=== PATIENT | female | born 1935 | race African-American/Black ===

== ENCOUNTER 2016-08-20 23:20 | Inpatient (IN) | payer OTHER ==
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
--- NOTE | ~2016-08-20 | DS ---
Unit #: [id number] #: [id number] Patient: GIANNI GARCIA [id number] [address] [address] [id number] I MR#: [id number] NAME: GIANNI GARCIA. ROOM: 229 Age: 81 Sex: F Admission Date: 08/22/2016 : 1935 Discharge Date: 08/25/2016 Attending Physician: Vishnu Sommer M.D. Primary Care Physician: Toña Lyn M.D. DISCHARGE SUMMARY DIAGNOSIS ON ADMISSION Dementia with agitation. DIAGNOSES ON DISCHARGE 1. Dementia with behavior disorder. 2. Type 2 diabetes mellitus. 3. Hypertension. 4. History of gout. 5. Gastroesophageal reflux disease. 6. Degenerative joint disease. 7. History of right breast cancer, status post mastectomy. 8. History of chronic low-back pain and back surgery. DIAGNOSTIC STUDIES LABORATORY: Patient's creatinine is 1, sodium 132, potassium is 4. WBC 9.3, hemoglobin 13.5, platelet count 216,000. Urinalysis was negative. Hemoglobin A1c was 8.3. TSH was 1.63. HOSPITAL COURSE An 81-year-old female was admitted to the hospital with agitation. Details are as per admission H and P. Patient was treated symptomatically and has responded well. Patient's family is unable to take care of her at home. Therefore, she will be transferred to a long-term care facility. Type 2 diabetes mellitus: Patient was started on glipizide. Her hemoglobin 2.5 mg. Her hemoglobin A1c is 8.3. Today patient is comfortable, is not in any acute distress. PHYSICAL EXAMINATION VITAL SIGNS: Reveal temperature 97.5, pulse is 64 per minute, respiratory rate is 18 per minute, blood pressure is 166/64. HEENT: Revealed no conjunctival congestion. Sclerae nonicteric. NECK: Supple. Trachea is central. RESPIRATORY: Revealed decreased breath sounds bilaterally. There are no wheezes or crackles. HEART: Regular rate and rhythm. S1, S2. ABDOMEN: Soft, nontender. Bowel sounds are present in all four quadrants. NEUROLOGIC: Patient is only oriented to self. Strength is 4+ bilaterally. SKIN: Warm and dry. RECOMMENDATIONS ON DISCHARGE Unit #: [id number] #: [id number] Patient: GIANNI GARCIA Condition is stable. Activity is as tolerated. MEDICATIONS 1. Tylenol 650 mg p.o. q.4 hours p.r.n. 2. Magnesium oxide 400 mg p.o. b.i.d. 3. Risperdal 0.25 mg p.o. b.i.d. 4. Toprol XL 25 mg p.o. b.i.d. 5. MiraLax 17 g p.o. daily. 6. Lasix 40 mg p.o. every morning. 7. Trental 400 mg p.o. t.i.d. 8. Insulin sliding scale as per facility. 9. Pepcid 20 mg p.o. b.i.d. 10. Enteric coated aspirin 81 mg p.o. daily. 11. Voltaren gel apply topically b.i.d. to her knees until one week. 12. Potassium 20 mEq p.o. b.i.d. 13. Glipizide 2.5 mg p.o. daily. DISPOSITION The patient will be transferred to long-term care facility. PLAN The plan has been discussed with patient's son who has shown complete understanding. Dictated by... Mary Joya TD: 08/25/2016 12:55 JOB #: [id number] DISCHARGE SUMMARY Page 1 of 1 X Dafne Ayala MD X DISCHARGE SUMMARY
--- NOTE | ~2016-08-20 | EKG ---
PATIENT: GIANNI GARCIA UNIT #: [id number] Ventricular Rate: 94 BPM Atrial Rate: 94 BPM P-R Interval: 188 ms QRS Duration: 76 ms Q-T Interval: 410 ms QTC Calculation(Bezet): 512 ms P [place]: 83 degrees Calculated R [place]: 14 degrees Calculated T [place]: 63 degrees Diagnosis Line: Sinus rhythm with Premature atrial complexes Diagnosis Line: Nonspecific T wave abnormality Diagnosis Line: Abnormal ECG Diagnosis Line: No previous ECGs available Diagnosis Line: Confirmed by VANITA WHITEHEAD MD ([id number]) on Diagnosis Line: 08/21/2016 9:05:50 AM INTERPRETING MD: VENTURA ROBERTSON
--- NOTE | ~2016-08-20 | CR72 ---
[facility] A Service of [facility] RADIOLOGY TEXT RESULTS PATIENT: GIANNI GARCIA LOCATION: C2A 229-01 : 34 UNIT #: [id number] AGE: [address]: Vishnu Sommer MD SEX: F ORDER DR: [id number] [facility] [address]. [place], [place] [address] [id number] I MR#: [id number] Acc #: [id number] NAME: GIANNI GACRIA. : 1935 SEX: F STUDY DATE/TIME: 08/21/2016 0:00 UNIT: A ROOM: 229 STUDY DESCRIPTION: CR Chest Single View Portable Attending Physician: Vishnu Sommer M.D. Ordering Physician: Chacho Pappas P.A.-C. Primary Care Physician: Toña Lyn M.D. MEDICAL IMAGING REPORT This report is preliminary unless electronic signature is present EXAM Portable chest, 08/21 COMPARISON 11/26/2009 HISTORY Altered mental status, diarrhea, confusion for 2 months which is getting worse. FINDINGS A portable view of the chest was obtained. The heart size and vascularity are normal and the lungs are clear. There are sternotomy wires present. IMPRESSION No active disease. Dictated by... Gm Doss M.D. THIS IS AN ELECTRONICALLY VERIFIED REPORT Gm Doss M.D. at 08/21/2016 1:32 PM AARON/melvin TD: 08/21/2016 08:16 JOB #: [id number] MEDICAL IMAGING REPORT Page 1 of 1 COPY
--- NOTE | ~2016-08-20 | DS ---
Unit #: [id number] #: [id number] Patient: GIANNI GARCIA [id number] [facility]. [address] [address] [id number] I MR#: [id number] NAME: GIANNI GARCIA. ROOM: 229 Age: 81 Sex: F Admission Date: 08/22/2016 : 1935 Discharge Date: 08/26/2016 Attending Physician: Vishnu Sommer M.D. Primary Care Physician: Toña Lyn M.D. DISCHARGE SUMMARY ADDENDUM ADDITIONAL DISCHARGE MEDICATIONS Glipizide 2.5 mg p.o. daily. Make note the patient's hemoglobin A1C was 7.2. I have started him on low dose glipizide 2.5 mg p.o. daily with breakfast. Dictated by... Mary Joya TD: 08/25/2016 16:18 JOB #: [id number] DISCHARGE SUMMARY Page 1 of 1 X Dafne Ayala MD X DISCHARGE SUMMARY
[~2016-08-20 23:20] MED LIST: SEE BELOW
[2016-08-21 00:43] LABS: BASOPHIL% 0.4 % (0-2.5); DIFF IND NO; EOSINOPHIL# 0.1 X10e3 (0-0.7); EOSINOPHIL% 1.3 % (0.0-7.0); HEMATOCRIT 41.2 % (35.0-45.0); HEMOGLOBIN 13.5 gm/dL (12.0-16.0); LYMPHOCYTE# 2.9 X10e3 (1.0-3.5); LYMPHOCYTE% 30.9 % (17.0-45.0); MEAN CELL VOLUME 89.3 FL (83-96); MEAN CORPUSCULAR HEMOGLOBIN 29.1 PG (28-34); MEAN CORPUSCULAR HGB CONC 32.6 g/dL (30-36); MEAN PLATELET VOLUME 8.2 FL (6.5-11.5); MONOCYTE# 0.9 X10e3 (0-1.0); MONOCYTE% 9.8 % (3.0-12.0); NEUTROPHIL# 5.3 X10e3 (1.5-7.1); NEUTROPHIL% 57.6 % (40-75); PLATELET COUNT 216 X10e3 (140-420); RED BLOOD COUNT 4.62 X10e (3.90-5.30); RED CELL DISTRIBUTION WIDTH 14.3 % (11.0-15.5); WHITE BLOOD COUNT 9.3 X10e3 (4.0-10.5)
[2016-08-21 01:52] LABS: BILIRUBIN, DIRECT 0.1 mg/dL (0.0-0.2); BILIRUBIN,INDIRECT 0.8 mg/dL (0.0-0.9); BILIRUBIN,TOTAL 0.9 mg/dL (0.2-2.0); CALCIUM SERUM 9.1 mg/dL (8.4-10.2); GLOM FILT RATE Estimated 60.8 mL/min (>60); PROTEIN TOTAL SERUM 6.9 g/dL (6.0-8.3)
[2016-08-21 02:03] LABS: URINE SOURCE CATH
[2016-08-21 02:09] LABS: URINE APPEARANCE CLEAR; URINE BILIRUBIN NEG (NEG); URINE BLOOD NEG (NEG); URINE COLOR YELLOW; URINE GLUCOSE NEG (NEG); URINE KETONE NEG (NEG); URINE LEUKOCYTE ESTERASE NEG (NEG); URINE NITRATE NEG (NEG); URINE PROTEIN NEG (NEG); URINE SPECIFIC GRAVITY 1.005 (1.003-1.035); URINE UROBILINOGEN 0.2 MG/DL (NEG)
[2016-08-21 02:14] LABS: CULTURE INDICATED? NO
[2016-08-21] MEDS ORDERED: ASPIRIN81 MG PO (02:27)
[2016-08-21] MEDS ORDERED: VOLTAREN100 GM TOP (02:29)
[2016-08-21] MEDS ORDERED: LASIX PO (02:29)
[2016-08-21] MEDS ORDERED: MAG-OX 400400 M1 PO (02:29)
[2016-08-21] MEDS ORDERED: MIRALAX17 GM PO (02:30)
[2016-08-21] MEDS ORDERED: METOPROLOL SUCC25 MG PO (02:30)
[2016-08-21] MEDS ORDERED: K-LOR HOSPITAL20 ME1 PO (02:30)
[2016-08-21] MEDS ORDERED: FAMOTIDINE20 M1 PO (02:31)
[2016-08-21] MEDS ORDERED: RISPERDAL0.25 MG PO (02:31)
[2016-08-21] MEDS ORDERED: PENTOXIFYLLINE ER PO (02:32)
[2016-08-21] MEDS ORDERED: HUMULIN N100 UNIT/1 (02:40)
[2016-08-26] MEDS ORDERED: GLIPIZIDE ER2.5 MG PO (15:27)
[2016-08-26] MEDS ORDERED: HUMULIN N100 UNIT/1 (15:49)
== END 2016-08-26 16:39 | disposition home or self-care (01) | DRG 884 ==
LOC: CED 23:20 → CEDOF 08-21 03:49 → C2A 08-21 07:23
PROVIDERS: Physician Assistant
DX: F03.91 Unspecified dementia, unspecified severity, with behavioral disturbance (principal); E11.9 Type 2 diabetes mellitus without complications; I10 Essential (primary) hypertension; Z79.84 Long term (current) use of oral hypoglycemic drugs; M10.9 Gout, unspecified; K21.9 Gastro-esophageal reflux disease without esophagitis; M19.90 Unspecified osteoarthritis, unspecified site; Z85.3 Personal history of malignant neoplasm of breast; Z79.82 Long term (current) use of aspirin
CPT/HCPCS: 36415; 51701; 71010; 80048; 80076; 81003; 82947; 83036; 83735; 84443; 85025; 93005; 97110; 97116; 97161; 97166; 97530; 99285; G8978-GP; G8979-GP; G8987-GO; G8988-GO; J1815